=== PATIENT | female | born 1950 ===

== ENCOUNTER 2018-12-08 18:04 | Emergency (ER) | payer MEDICARE, OTHER ==
--- NOTE | 2018-12-08 18:53 | UC ---
Respiratory Complaint HPI - HPI Summary HPI Summary: 67-year-old woman comes in with a chief complaint of chest congestion fevers upper respiratory tract infection symptoms and feeling ill. Patient reports rhinorrhea for about 3 weeks. Patient does have a pulmonary history which may be fibrosis. She is on Qvar daily. Today she felt pressure in her right year and was dizzy and was having hard time walking when she was dizzy. She has a fever that came on today. She does have some chest congestion. Patient said pneumonia before and states this does not feel as bad as a pneumonia. - History of Current Complaint Chief Complaint: UCGeneralIllness Stated Complaint: URI Time Seen by Provider: 12/08/18 18:15 Pain Intensity: 5 - Allergies/Home Medications Allergies/Adverse Reactions: Allergies Allergy/AdvReac Type Severity Reaction Status Date / Time levofloxacin [From Levaquin] Allergy Altered Verified 12/08/18 18:29 Mental Status Home Medications: Home Medications Cetirizine HCl [Zyrtec] 1 tab PO DAILY 12/08/18 [History Confirmed 12/08/18] Cholecalciferol (Vitamin D3) [Vitamin D3] 1 tab PO DAILY 12/08/18 [History Confirmed 12/08/18] Ibuprofen 600 mg PO ONCE PRN 12/08/18 [History Confirmed 12/08/18] Levothyroxine Sodium 1 tab PO DAILY 12/08/18 [History Confirmed 12/08/18] Montelukast Sodium 1 tab PO DAILY 12/08/18 [History Confirmed 12/08/18] Multivitamin [Multivitamins] 1 tab PO DAILY 12/08/18 [History Confirmed 12/08/18 ] Mycophenolate Mofetil 1,000 mg PO QPM 12/08/18 [History Confirmed 12/08/18] Mycophenolate Mofetil 1,500 mg PO QAM 12/08/18 [History Confirmed 12/08/18] Nebivolol HCl [Bystolic] 1 tab PO DAILY 12/08/18 [History Confirmed 12/08/18] Stanton-3 Fatty Acids (Nf) [Fish Oil (NF)] 1 tab PO DAILY 12/08/18 [History Confirmed 12/08/18] Simvastatin [Zocor] 1 tab PO DAILY 12/08/18 [History Confirmed 12/08/18] Turmeric 1 dose PO DAILY 12/08/18 [History Confirmed 12/08/18] Ubidecarenone [Coq-10] 200 mg PO DAILY 12/08/18 [History Confirmed 12/08/18] Vitamin B Complex CAP* [B Complex CAP*] 1 tab PO DAILY 12/08/18 [History Confirmed 12/08/18] PMH/Surg Hx/FS Hx/Imm Hx Previously Healthy: Yes Other Respiratory History: PULMONARY FIBROSIS - Surgical History Surgical History: Yes Surgery Procedure, Year, and Place: cholecystectomy. lung biopsy - Family History Known Family History: Positive: Non-Contributory - Social History Alcohol Use: Rare Substance Use Type: None Smoking Status (MU): Never Smoked Tobacco Review of Systems All Other Systems Reviewed And Are Negative: Yes Constitutional: Positive: Fever, Chills, Fatigue, Other - SEE HPI Skin: Positive: Negative Eyes: Positive: Negative ENT: Positive: Sore Throat, Ear Ache, Nasal Discharge, Sinus Congestion Respiratory: Positive: Shortness Of Breath, Cough, Other - SEE HPI Cardiovascular: Positive: Negative Gastrointestinal: Positive: Negative Motor: Positive: Negative Neurovascular: Positive: Negative Musculoskeletal: Positive: Negative Neurological: Positive: Other - DIZZINESS Psychological: Positive: Negative Is Patient Immunocompromised?: No Physical Exam Triage Information Reviewed: Yes Appearance: No Pain Distress, Well-Nourished, Ill-Appearing - MILD Vital Signs: Initial Vital Signs Temp 100.2 F 12/08/18 18:20 Pulse 80 12/08/18 18:20 Resp 20 12/08/18 18:20 BP 138/68 12/08/18 18:20 Pulse Ox 96 12/08/18 18:20 Vital Signs Reviewed: Yes Eye Exam: Normal Eyes: Positive: Conjunctiva Clear ENT: Positive: Pharyngeal erythema, Nasal congestion, Nasal drainage, TMs normal Neck: Positive: Supple Respiratory: Positive: No respiratory distress, Rhonchi - B/L AT THE BASES Cardiovascular: Positive: RRR Musculoskeletal: Positive: Strength Intact, ROM Intact, No Edema - NO CALF TENDERNESS Neurological: Positive: Alert Psychological: Positive: Normal Response To Family, Age Appropriate Behavior Skin Exam: Normal Respiratory Course/Dx - Course Course Of Treatment: I discussed the chest x-ray with the patient and her daughter. On my interpretation there is peribronchial consolidation consistent with pneumonia. She also has some pulmonary fibrosis. I do not have an old chest x-ray to compare to. Will treat for pneumonia with Giles azithromycin as the patient is said she's been treated with Giles azithromycin her doctors at home and that has helped her in the past. Patient declined a course of steroids. She will continue on the Qvar. She is planning to return home in 2 days. I let her know if she got worse she needs to the emergency department for further evaluation and care. - Differential Dx/Diagnosis Provider Diagnosis: Pneumonia Discharge ED - Sign-Out/Discharge Documenting (check all that apply): Patient Departure All imaging exams completed and their final reports reviewed: No - Discharge Plan Condition: Stable Disposition: HOME Prescriptions: Azithromyxin KAROL (NF) [Z-Karol (Zithromax) 250 mg tabs #6] 2 tab PO .TODAY, THEN 1 DAILY #6 tab Patient Education Materials: Community Acquired Pneumonia (ED) [place]: [facility] [place] [facility] [place]] Additional Instructions: FOLLOW UP WITH YOUR DOCTOR. GO TO THE EMERGENCY DEPARTMENT IF YOUR CONDITION WORSENS OR ANY QUESTIONS OR CONCERNS. - Billing Disposition and Condition Condition: STABLE Disposition: Home
--- NOTE | 2018-12-09 09:34 | UC ---
- Progress Note Progress Note: RN to call pt. Reviewed cxr report. Report correlates with prelim reading. No acute change in management. Encourage f/u PCP as advised, seek medical attention for worse or new problems in the meantime. Course/Dx - Diagnoses Provider Diagnoses: Pneumonia Discharge ED - Sign-Out/Discharge Documenting (check all that apply): Post-Discharge Follow Up All imaging exams completed and their final reports reviewed: Yes - Discharge Plan Condition: Stable Disposition: HOME Prescriptions: Azithromyxin KAROL (NF) [Z-Karol (Zithromax) 250 mg tabs #6] 2 tab PO .TODAY, THEN 1 DAILY #6 tab Patient Education Materials: Community Acquired Pneumonia (ED) Referrals: [facility] [place] [facility] [Outside] Additional Instructions: FOLLOW UP WITH YOUR DOCTOR. GO TO THE EMERGENCY DEPARTMENT IF YOUR CONDITION WORSENS OR ANY QUESTIONS OR CONCERNS. - Billing Disposition and Condition Condition: STABLE Disposition: Home
== END 2018-12-08 19:35 | disposition home or self-care (01) ==
LOC: UCEAST 18:04
DX: J18.9 Pneumonia, unspecified organism (principal); M79.7 Fibromyalgia
CPT/HCPCS: 71046; 99202; G0463